=== PATIENT | female | born 1980 | race Asian ===

== ENCOUNTER → 2024-05-15 11:55 | Outpatient (CLI) | payer OTHER, SELFPAY ==
--- NOTE | 2024-05-15 12:00 | DI.MG.S_ITS ---
BILATERAL DIGITAL DIAGNOSTIC MAMMOGRAM 3D/2D: 05/15/2024 CLINICAL: Palpable left breast lump. Comparison is made to exams dated: 04/20/2024 mammogram, 04/02/2023 mammogram, and 11/27/2021 mammogram - [facility]. The breasts are heterogeneously dense, which may obscure small masses (category c / 51-75% glandular tissue). There is a 0.7 cm oval equal density focal asymmetry in the left breast at 12 o'clock anterior depth. This is seen in additional views. This correlates as palpated, with area of clinical concern, and triangle skin marker. No other significant masses, calcifications, or other findings are seen in either breast. IMPRESSION: INCOMPLETE: NEED ADDITIONAL IMAGING EVALUATION The 0.7 cm oval equal density focal asymmetry in the left breast resembles a cyst and is indeterminate. An ultrasound is recommended for further evaluation and is scheduled to immediately follow this examination. Based on the Tyrer Cuzick model (a risk assessment model) the patient's lifetime risk is 10.6% and her 10 year risk is 1.7%. According to the ACR, ACS, and NCCN guidelines, an annual breast MRI exam along with mammogram is recommended if the patient's lifetime risk is 20% or greater. This exam was interpreted at Station ID: [id number]. NOTE: For mammograms, a report in lay terms will be sent to the patient. Approximately 15% of breast malignancies will not be visualized mammographically. In the management of a palpable breast mass, a negative mammogram must not discourage biopsy of a clinically suspicious lesion. Electronically Signed By: Jefferson Gutierrez M.D. aty/:05/15/2024 13:07:49 ACR BI-RADS Category 0: Incomplete: Need Additional Imaging Evaluation
--- NOTE | 2024-05-15 12:00 | DI.US.S_ITS ---
LIMITED ULTRASOUND OF LEFT BREAST: 05/15/2024 CLINICAL: Patient returns today to evaluate a focal asymmetry in the left breast. Comparison is made to exams dated: 05/15/2024 mammogram - [facility], 04/20/2024 mammogram, 04/02/2023 mammogram, and 11/27/2021 mammogram - [facility]. Color flow and real-time ultrasound of the left breast 12 o'clock region were performed. Fernández scale images of the real-time examination were reviewed. There is a benign 0.8 cm x 0.7 cm x 0.7 cm oval cyst within the skin of the left breast at 12 o'clock 2 cm from the nipple. This oval cyst is hypoechoic with a well-defined boundary, internal echoes, and posterior acoustic enhancement. This correlates as palpated, with mammography findings, and area of clinical concern. Color flow imaging demonstrates that there is an adjacent vascularity. IMPRESSION: BENIGN There is no sonographic evidence of malignancy. The 0.8 cm x 0.7 cm x 0.7 cm oval cyst within the skin of the left breast has a differential diagnosis of a complicated cyst, epidermoid cyst or sebaceous cyst and is benign. Recommend clinical follow up for persistent or worsening symptoms, or development of any clinically suspicious findings. Return to annual mammogram screening schedule is recommended due in April 2025. Findings and recommendations were conveyed to the patient during today's evaluation. This exam was interpreted at Station ID: [id number]. Electronically Signed By: Jefferson Gutierrez M.D. aty/:05/15/2024 13:20:05 letter sent: Clinical Evaluation ACR BI-RADS Category 2: Benign
== END ==
PROVIDERS: Referring Provider Nurse Practitioner Family; Visit Provider Nurse Practitioner Family
DX: R92.8 Other abnormal and inconclusive findings on diagnostic imaging of breast (principal); N63.20 Unspecified lump in the left breast, unspecified quadrant; N60.02 Solitary cyst of left breast
CPT/HCPCS: 76642; 77066; G0279

== ENCOUNTER → 2024-12-15 13:02 | Outpatient (CLI) | payer OTHER, SELFPAY ==
--- NOTE | 2024-12-15 13:08 | DI.MG.S_ITS ---
US breast LT limited, MM diagnostic mammo unilat LT: 12/15/2024 BI-RADS: 3 CLINICAL: 44-year old female for left diagnostic mammogram and left diagnostic breast ultrasound. Tyrer-Cuzick lifetime risk of 9.3%. No personal or first-degree family history of breast cancer. The patient reports a palpable abnormality (more than 2 years) in the left breast. PRIOR EXAMS: 05/15/2024, 04/20/2024, 04/02/2023. MAMMOGRAPHY TECHNIQUE: 2D and 3D (tomosynthesis) digital mammographic views obtained, with additional images as needed for full coverage. Current study was also evaluated with a Computer Aided Detection (CAD) system. ULTRASOUND TECHNIQUE Real-time zhang scale and color doppler imaging of the area of clinical interest was performed with image documentation. Left targeted breast ultrasound of the area of clinical interest and the axilla was performed with image documentation. DENSITY Left: C. The breasts are heterogeneously dense, which may obscure small masses. MAMMOGRAPHY FINDINGS Left: Upper Inner at 11:00, Anterior depth: Correlating with palpable lump there is an oval mass present that has increased in size. ULTRASOUND FINDINGS Left: Upper Inner at 11:00, 4.0 cm from nipple, Superficial Depth, measuring 2 x 1.7 x 0.7 cm: Most likely a sebaceous cyst. Correlating with palpable lump and pain/tenderness there is an oval, circumscribed, hypoechoic cyst vs solid mass that is parallel showing posterior acoustic enhancement. The lesion has increased in size. Doppler shows only rim vascularity. IMPRESSION: * Suspect enlarging subaceous cyst. Recommend surgical excision. Left (CvS): Upper Inner at 11:00, 4.0 cm from nipple, Superficial Depth, measuring 2 x 1.7 x 0.7 cm * Probably Benign. RECOMMENDATIONS Left: Upper Inner at 11:00, 4.0 cm from nipple, Superficial Depth * Six month followup with diagnostic ultrasound. * Referral to surgeon (Recommend surgical excision.). Referral appointment to be scheduled at earliest convenience. OVERALL ASSESSMENT CATEGORY BI-RADS-3: Probably Benign. ELECTRONICALLY SIGNED: Ge Gorman M.D. on 12/15/2024 at 03:29:46 PM PT Interpreting Station ID: [id number]
== END ==
PROVIDERS: Referring Provider Nurse Practitioner Family; Visit Provider Nurse Practitioner Family
DX: N63.22 Unspecified lump in the left breast, upper inner quadrant (principal); R92.332 Mammographic heterogeneous density, left breast
CPT/HCPCS: 76642; 77065; G0279

== ENCOUNTER 2025-03-07 13:10 | Day surgery (SDC) | payer OTHER, SELFPAY ==
[2025-03-01 14:05] VITALS: BMI 28.3
[2025-03-07] VITALS (8 sets, daily range): BP systolic 132–157; BP diastolic 79–87; PULSE 71–88; RESP 16–24; TEMP 36.2–36.5; O2SAT 98–99; BMI 28.3
--- NOTE | 2025-03-07 | PATH_ITS ---
[facility] Accession Number: [id number] No. of containers..01 Tissue . 01 Material submitted: . breast - LEFT BREAST CYST . 01 Diagnosis: LEFT BREAST, EXCISION: Scar and acute and granulomatous inflammation consistent with the vicinity of a ruptured cyst or folliculitis. . Note: No remnants of a cyst wall are visualized histologically. Clinicopathological correlation is advised. MRV 03/12/2025 1702 Local . 01 Electronically signed: . Dena Mclaughlin MD, Dermatopathologist NPI- [id number] . 01 Gross description: . Received in formalin with two identifiers and L breast cyst, are two tissue fragments. The first is an unoriented ellipse of skin, 1.8 x 0.4 x 0.4 cm, and is inked blue. The second fragment is yellow to lazo soft tissue, 1.5 x 1.4 x 1.0 cm, and is inked green. Sectioning reveals yellow to lazo soft tissue with no distinct cyst or cyst contents identified. The specimen is submitted entirely as follows: . A1: Skin ellipse tips. A2: Remaining ellipse. A3: Soft tissue fragment. ([id number]) /MRV 03/08/2025 1316 Local . 01 Pathologist provided ICD-10: L73.9 . 01 CPT . 402825 Specimen Comment: A courtesy copy of this report has been sent to [phone] Performed at: [address] [id number] MD Pino Ding MD Phone: [phone]
--- NOTE | 2025-03-07 13:44 | DI.RAD.S_ITS ---
PROCEDURE: XR CERVICAL SPINE 2V OR 3V INDICATIONS: neck pain TECHNIQUE: Three views of the cervical spine were acquired. COMPARISON: None. FINDINGS: Cervical spine curvature and alignment: Normal. Bones: There are no osseous abnormalities. Disc spaces: Mild C5-6 degenerative disc disease noted Intervertebral foramen: Grossly normal in width. Soft tissues: No soft tissue swelling, calcification or mass. IMPRESSION: Mild C5-6 degenerative disc disease Dictated by: Parag Collins M.D. on 03/08/2025 at 12:17 Approved by: Parag Collins M.D. on 03/08/2025 at 12:17
[2025-03-07] MEDS: SCOPOLAMINE 1 PATCH TOP (15:06)
[2025-03-07] MEDS: LACTATED RINGERS 1,000 ML 42 ML IV (15:06)
[2025-03-07] MEDS: FAMOTIDINE 20 MG/2 ML VIAL IV (15:06)
--- NOTE | 2025-03-07 16:06 | P.HP_ITS ---
History of Present Illness History of Present Illness Date Patient Seen: 03/07/25 Time Patient Seen: 16:06 Chief complaint: Excisional bx of L breast Narrative: Milvia is a 44-year-old woman who presents with a left breast cyst. See the office note for details. PFSH Social History household members: spouse and children Smoking Status: Never smoker Meds Home Medications and Allergies Allergies Allergy/AdvReac Type Severity Reaction Status Date / Time No Known Drug Allergies Allergy Verified 03/07/25 14:43 Exam Vital Signs (past 8 hours): - 03/07/25 14:56 Temperature 97.2 F L Pulse Rate 74 Respiratory Rate 16 Blood Pressure 132/85 Pulse Oximetry 99 Oxygen Delivery Method Room Air Oxygen Delivery Method Room Air Narrative Exam Narrative: Left breast cyst Const General: healthy appearing Assessment & Plan Assessment and plan (1) Cyst of left breast: Status: Acute Plan Excisional biopsy of left breast cyst Time-Based Coding :: [TOTAL MINUTES] spent with patient and on the chart (including review of chart, obtaining history, exam, reviewing outside data, placing orders, documenting exam and treatment plan, and counseling patient) on [DATE]. PROFEE Food Safety Coordinator Document charge(s): Yes
--- NOTE | 2025-03-07 16:34 | SUR.OPER ---
Supine on padded OR bed, head on pillow, right arm padded and tucked at side, left arm on padded armboard, legs uncrossed, safety belt at thigh, tape over blanket over lower legs .
[2025-03-07] MEDS: BUPIVACAINE 0.5% W/ EPI (PF) 30 ML VIAL INJ (16:39)
--- NOTE | 2025-03-07 16:41 | SUR.OPER ---
Supine on padded OR bed, head on pillow, right arm padded and tucked at side, left arm on padded arm board, legs uncrossed, safety belt at thigh, tape over blanket over lower legs .
--- NOTE | 2025-03-07 16:43 | P.OP_ITS ---
Operative Date/Time/Diagnoses Date of procedure: 03/07/25 Time of procedure: 16:43 Pre-op diagnosis: Left breast cyst Post-op diagnosis: same Procedure & Clinicians Procedure: Excisional biopsy of left breast cyst Same procedure(s) as scheduled: Yes Surgeon: Mannie Lechuga Perl Software Engineer: Richard Lubin Anesthesia Type: General Operative Notes Findings: Small decompressed left breast epidermal cyst Applied: none Estimated Blood Loss (mL): 2 Procedure in detail: The patient was brought to the operating room and positioned supine on the operating room table with the left arm out. General anesthesia was induced. The left breast was prepped and draped in the usual fashion. A time-out was performed. We made a 3 cm radial incision over the area where the cyst had been. There was some slight dark discoloration of the skin indicating were the inflammation had been in the prior month. Was also a small punctate opening suggesting an epidermal cyst. An ellipse of skin was excised which tore free from the underlying cyst. The 2 cm cyst sac was then excised from the surrounding tissue and sent as a specimen. The skin was then closed in layers using multiple interrupted 3-0 Vicryl dermal sutures followed by a running 4-0 Monocryl subcuticular stitch. Sterile dressings were applied. Richard VELIZ provided assistance with exposure, retraction and closure of incisions. Complications: none Post-operative Condition: stable Disposition: PACU
[2025-03-07] MEDS: BENZOCAINE/MENTHOL 1 LOZ PKT 1 EACH PO (17:13)
== END 2025-03-07 17:52 | disposition home or self-care (01) ==
PROVIDERS: PCP Nurse Practitioner Family; Referring Provider Surgery; Visit Provider Surgery
PROC: (CPT 19120; principal; 2025-03-07 14:45)
DX: N60.02 Solitary cyst of left breast (principal); L92.8 Other granulomatous disorders of the skin and subcutaneous tissue
CPT/HCPCS: 19120; 72040; 81025; J1100; J1885; J2250; J2405; J2704; J3010